=== PATIENT | male | born 1990 | race Two or more races ===

== ENCOUNTER 2017-08-22 23:49 | Emergency (ER) | payer SELFPAY ==
[~2017-08-22] VITALS: Ht 172.7 cm; Wt 81.6 kg
[2017-08-23 00:06] VITALS: Ht 172.7 cm; Wt 81.6 kg
[2017-08-23 01:07] LABS: BASOPHIL % 1.4 % (0-2); CALCIUM 8.9 mg/dL (8.5-10.1); CARBON DIOXIDE 29.5 mmol/L (21-32); CHLORIDE SERUM 106 mmol/L (98-107); CREATININE SERUM 1.1 mg/dL (0.7-1.3); GFR1 > 60 mL/min; GLUCOSE SERUM 110 mg/dL (74-106); PLATELET COUNT 365 x10^3mcL (130-400); POTASSIUM SERUM 3.5 mmol/L (3.5-5.1); SODIUM SERUM 143 mmol/L (136-145)
[2017-08-23 01:12] LABS: ALBUMIN 3.6 g/dL (3.4-5.0); ALKALINE PHOSPHATASE 62 U/L (46-116); ALT/SGPT 18 U/L (16-63); AST/SGOT 14 U/L (15-37); BILIRUBIN TOTAL 0.25 mg/dL (0.20-1.00); TOTAL PROTEIN, SERUM 7.2 g/dL (6.4-8.2)
[2017-08-23 08:08] VITALS: BP 121/76
== END 2017-08-23 09:25 | disposition home or self-care (01) ==
LOC: ED 23:49
PROVIDERS: Emergency Medicine
DX: F10.129 Alcohol abuse with intoxication, unspecified (principal); S34.5XXA Injury of lumbar, sacral and pelvic sympathetic nerves, initial encounter; Z88.6 Allergy status to analgesic agent; X58.XXXA Exposure to other specified factors, initial encounter; Y93.89 Activity, other specified; Y92.89 Other specified places as the place of occurrence of the external cause; Y99.8 Other external cause status; F41.9 Anxiety disorder, unspecified
CPT/HCPCS: 83880; G0480; J7030; Q0092